=== PATIENT | male | born 1965 | race Caucasian/White ===

== ENCOUNTER 2017-05-16 16:49 | Emergency (ER) | payer OTHER ==
[~2017-05-16] VITALS: Ht 193 cm; Wt 140.0 kg
[~2017-05-16 16:49] MED LIST: ASPI325T PO; NIAC500T34 PO; PROV200T11 PO; VYTO10TA35 PO
[2017-05-16 16:51] VITALS: BP 163/97; PULSE 78; RESP 16; TEMP 97.9; O2SAT 95
--- NOTE | 2017-05-16 17:17 | PD ---
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 This was diagnosed in a different hospital [place] while he was visiting there for a wedding. Headache and peripheral vision are the main symptoms. headache is 8/10. No blood thinners. no trauma. per patient mass is about 2 cm. PCP is making plans to follow up with neurosurgeon. Vitals are stable. Awaiting bed placement Data Data Last Documented VS Vital Signs Date Time Temp Pulse Resp B/P Pulse Ox O2 Delivery O2 Flow Rate FiO2 05/16/17 16:51 97.9 78 16 163/97 95 MDM Medical Record Reviewed: Yes Supervised Visit with JOLENE: No Isreal Sharp May 16, 2017 17:17
--- NOTE | 2017-05-16 21:21 | PD ---
HPI Chief Complaint: Headache Time Seen by Provider: 21:14 Travel History International Travel<30 days: No Contact w/Intl Traveler<30days: No Traveled to known affect area: No History of Present Illness HPI 52-year-old male with a history of hyperlipidemia presents to the emergency department for evaluation of worsening headache and visual changes with a history of pituitary adenoma. The patient states that 2 days ago he was driving home from [place] with his in the car when he suddenly experienced blurred vision and peripheral vision loss. He states that he also had a headache that began around this time. States that he went to the nearest [facility] and was evaluated and diagnosed with a 2 cm pituitary adenoma. States that he has had a persistent headache with peripheral vision loss since this all began 2 days ago. States that today his headache worsened and he is also had some "haziness" to his vision which concerned him which is why he came to the emergency department tonight. States he has had some recurrent sinusitis and sinus pressure. Denies any fever, chills, nausea, vomiting, lightheadedness, dizziness, numbness or tingling, weakness. States he's had some intermittent right lower back pain for the past month after riding on a plane. No other complaints. PFSH Past Medical History Cancer: No High Cholesterol: Yes Diabetes: No Hepatitis: No Hiatal Hernia: No Thyroid Disease: No Past Surgical History Abdominal Surgery: Yes (APPEND) Oral Surgery: Yes (NASAL SX X 2) Social History Tobacco Use: No Allergies-Medications (Allergen,Severity, Reaction): Uncoded Allergies: NKA (Allergy, 02/15/12) Reported Meds & Prescriptions Reported Meds & Active Scripts Active Augmentin (Amoxicillin-Clavulanate) 875-125 Mg Tab 1 Tab PO BID 10 Days Lortab (Hydrocodone-Acetaminophen) 5-325 Mg Tab 1 Tab PO Q6H PRN Reported C 500 (Ascorbic Acid) 500 Mg Tab 500 Mg PO HS Testosterone Cypionate Inj (Testosterone Cypionate) 200 Mg/Ml Inj 400 Mg IM Q14D Claritin (Loratadine) 10 Mg Tablet 10 Mg PO HS Pantoprazole (Pantoprazole Sodium) 40 Mg Tab 40 Mg PO HS Naprosyn (Naproxen) 500 Mg Tab 500 Mg PO BID Ergocalciferol 50,000 Unit Cap 50,000 Units PO MONDAY B-12 (Cyanocobalamin) 5,000 Mcg Subl 5,000 Mcg SL DAILY Montelukast (Montelukast Sodium) 10 Mg Tab 10 Mg PO DAILY Cialis (Tadalafil) 5 Mg Tab 5 Mg PO DAILY Do not exceed 1 dose/day. Niaspan (Niacin) 500 Mg Tab 500 Mg PO HS Vytorin (Ezetimibe-Simvastatin) 10-40 Mg Tab 1 Tab PO HS Aspirin 325 Mg Tab 325 Mg PO HS Review of Systems Except as stated in HPI: all other systems reviewed are Neg Physical Exam Narrative GENERAL: Well-nourished and well-developed pleasant male patient in no acute distress who is nontoxic appearing. SKIN: Warm and dry. HEAD: Normocephalic and atraumatic. EYES: No injection, drainage, or hyphema noted. PERRLA. EOMI. Peripheral visual cates are decreased bilaterally, worse on the left. ENT: No nasal drainage noted. Oropharynx is clear. NECK: Supple and the trachea is midline. CARDIOVASCULAR: Regular rate and rhythm. RESPIRATORY: Breath sounds are equal bilaterally with no accessory muscle use, wheezing, rhonchi, or crackles. GASTROINTESTINAL: Abdomen is soft, non-tender, and nondistended. MUSCULOSKELETAL: No obvious deformities, swelling, cyanosis, or ecchymosis is present throughout the upper and lower extremities. Patient has full range of motion without any signs of neurovascular compromise. BACK: Right lumbar paraspinal muscle tenderness to palpation. No obvious deformities, bony point tenderness, or crepitus noted throughout the thoracic and lumbar vertebrae. NEUROLOGICAL: Awake, alert, and oriented. Normal speech and gait. Cranial nerves are grossly intact. Data Data Last Documented VS Vital Signs Date Time Temp Pulse Resp B/P Pulse Ox O2 Delivery O2 Flow Rate FiO2 05/16/17 16:51 97.9 78 16 163/[address] Brain W/O Iv Contrast(Rout) (05/16/17 21:05) Acetamin-Hydrocod 325-5 Mg ([place] 5-325 (05/16/17 22:15) MDM Medical Decision Making Medical Screen Exam Complete: Yes Emergency Medical Condition: Yes Differential Diagnosis Pituitary mass versus intracranial edema versus mass effect versus hemorrhage Narrative Course 52-year-old male presents to the emergency department for evaluation of worsening headache and blurred vision with recent diagnosis of pituitary adenoma. Patient is afebrile, vital signs are stable. Patient brought with him his head CT and brain MRI reports from 2 days ago. MRA head without contrast shows large sellar mass with suprasellar extension which measures up to 2.1 cm superior to inferior, 1.9 similar anterior to posterior and 2.3 cm transverse. This is most consistent with pituitary macroadenoma. This demonstrates intense enhancement. There appears to be extension to the area cavernous sinuses bilaterally. Mass effect on the optic chiasm. No other areas of abnormal enhancement within the brain parenchyma. Head CT shows 1.9 cm mass in the sellar and suprasellar region consistent with the patient's stated diagnosis of pituitary macroadenoma. Otherwise unremarkable. The patient has remained stable while here in the emergency department. After discussion with the on-call neurosurgeon the patient will be discharged to follow-up as an outpatient with endocrinology. Patient is given a prescription for pain medication and antibiotics for headache and sinusitis. Discussed this with the patient and family who verbalize understanding and agreement with treatment plan. I discussed the case with my attending physician Dr. Wilde who is aware of the patients history, physical examination findings, and treatment plan. Physician Communication Physician Communication I spoke with Dr. Richmond neurosurgeon on-call who is made aware of patient's symptoms, physical exam findings and brain MRI report and states this does not require neurosurgery at this time and instead will need endocrinology and visual field testing. Diagnosis Primary Impression: Pituitary tumor Additional Impression: Sinusitis Qualified Code: J01.00 - Subacute maxillary sinusitis Referrals: Conrad Ravi MD Patient Instructions: General Instructions, Pituitary Adenoma (ED), Sinusitis ( ED) Additional Instructions: Take medications as prescribed with food and a full glass of water. Do not take Lortab with alcohol or while driving. Follow-up with your Primary Care Physician. You will need to see an Web Development Instructor, a Neurosurgeon and likely an Shipping Receiving Manager. Return to the ED for any acute worsening of symptoms. Med/Other Pt SpecificInfo: Prescription(s) given Scripts Amoxicillin-Clavulanate (Augmentin)875-125 Mg Tab1 Tab PO BID 10 Days Ref 0 Prov:Reynaldo Wilde MD 05/16/17 Hydrocodone-Acetaminophen (Lortab)5-325 Mg Tab1 Tab PO Q6H PRN (PAIN GREATER THAN 6) #20 TAB Ref 0 Prov:Reynaldo Wilde MD 05/16/17 Disposition: 01 DISCHARGE HOME Condition: Stable Sherie Dinh May 16, 2017 21:21
--- NOTE | 2017-05-16 21:47 | RADRPT ---
EXAM DATE/TIME: 05/16/2017 21:16 [facility] COMPARISON: No previous studies available for comparison. INDICATIONS : Cephalgia and blurred vision. RADIATION DOSE: 41.07 CTDIvol (mGy) MEDICAL HISTORY : Pituitary macroadenoma. SURGICAL HISTORY : None. ENCOUNTER: Initial ACUITY: 3 days PAIN SCALE: 8/10 LOCATION: cranial TECHNIQUE: Multiple contiguous axial images were obtained of the head. Using automated exposure control and adj ustment of the mA and/or kV according to patient size, radiation dose was kept as low as reasonably a chievable to obtain optimal diagnostic quality images. DICOM format image data is available electro nically for review and comparison. FINDINGS: CEREBRUM: There is a 1.9 cm mass seen in the sellar and suprasellar region. The sella appears enlarged. The robi tricles are normal for age. No evidence of midline shift, mass lesion, hemorrhage or acute infarctio n. No extra-axial fluid collections are seen. POSTERIOR FOSSA: The cerebellum and brainstem are intact. The 4th ventricle is midline. The cerebellopontine angle i s unremarkable. EXTRACRANIAL: The visualized portion of the orbits is intact. SKULL: The calvaria is intact. No evidence of skull fracture. CONCLUSION: 1.9 cm mass in the sellar and suprasellar region consistent with the patient's stated diagnosis of pi tuitary macroadenoma. Prior studies are unavailable for comparison at this time. Jasvir Monge MD on May 16, 2017 at 21:42 Board Certified Radiologist. This report was verified electronically.
[2017-05-16] MEDS ORDERED: ERGO1CAP30 PO (22:14)
[2017-05-16] MEDS ORDERED: CYAN1SUB SL (22:14)
[2017-05-16] MEDS ORDERED: CIAL5TAB PO (22:14)
[2017-05-16] MEDS ORDERED: MONT10TA4 PO (22:14)
[2017-05-16] MEDS ORDERED: VYTO10TA9 PO (22:14)
[2017-05-16] MEDS ORDERED: TEST200I12 IM (22:14)
[2017-05-16] MEDS ORDERED: CLAR10TA7 PO (22:14)
[2017-05-16] MEDS ORDERED: NIAC500 PO (22:14)
[2017-05-16] MEDS ORDERED: PANT40TA3 PO (22:14)
[2017-05-16] MEDS ORDERED: C 50TAB PO (22:14)
[2017-05-16] MEDS ORDERED: NAPR500 PO (22:14)
[2017-05-16] MEDS ORDERED: ASPI325T PO (22:14)
[2017-05-16] MEDS ORDERED: ACETAMINOPHEN/HYDROcodone 325 MG/5 MG TAB PO ONE (22:15)
[2017-05-16] MEDS ORDERED: AUGM875T3 PO (22:16)
[2017-05-16] MEDS ORDERED: HYDR-3533 PO (22:16)
[2017-05-16 22:29] VITALS: BP 181/98; PULSE 68; RESP 14; O2SAT 95
== END 2017-05-16 22:36 | disposition home or self-care (01) ==
LOC: NEPC 16:49
DX: D49.7 Neoplasm of unspecified behavior of endocrine glands and other parts of nervous system (principal); J01.00 Acute maxillary sinusitis, unspecified; E78.00 Pure hypercholesterolemia, unspecified
CPT/HCPCS: 70450